=== PATIENT | male | born 1980 | race American Indian/Alaskan Native ===

== ENCOUNTER 2017-07-07 11:33 | Emergency (ER) | payer SELFPAY ==
[2017-07-07] MEDS ORDERED: ZOFRAN IV ONE (11:53)
[2017-07-07] MEDS ORDERED: DILAUDID IV ONE (11:53)
--- NOTE | 2017-07-07 12:32 | Emergency Department Report ---
ED Extremity Problem HPI - General Chief complaint: Extremity Injury, Lower Stated complaint: RT KNEE PAIN Time Seen by Provider: 07/07/17 11:47 Source: EMS Mode of arrival: Stretcher Limitations: No Limitations - History of Present Illness Initial comments: 37-year-old male with no past medical history present pain, right knee pain status post fall. Patient states he initially while down a set of stairs and heard a crack. While walking back up the stairs they gave way causing him to fall about 6 feet. Complains of 10/10 right knee pain somewhat improved with fentanyl prior to arrival. No other pain or injury reported. patient denies head injury or LOC. Severity scale (0 -10): 7 - Related Data Previous Rx's Medication Instructions Recorded Last Taken Type HYDROcodone/APAP 5-325 [[place] 1 each PO Q6HR PRN #15 tablet 07/07/17 Unknown Rx 5/325] Ibuprofen [Motrin] 800 mg PO Q8HR PRN #30 tablet 07/07/17 Unknown Rx Allergies Allergy/AdvReac Type Severity Reaction Status Date / Time garlic Allergy Swelling Verified 07/07/17 11:53 ED Review of Systems ROS: Stated complaint: RT KNEE PAIN Other details as noted in HPI Comment: All other systems reviewed and negative ED Past Medical Hx - Past Medical History Previous Medical History?: No - Surgical History Past Surgical History?: No - Social History Smoking Status: Current Every Day Smoker Substance Use Type: Alcohol - Medications Home Medications: Home Medications Medication Instructions Recorded Confirmed Last Taken Type HYDROcodone/APAP 5-325 [[place] 1 each PO Q6HR PRN #15 tablet 07/07/17 Unknown Rx 5/325] Ibuprofen [Motrin] 800 mg PO Q8HR PRN #30 tablet 07/07/17 Unknown Rx ED Physical Exam - General Limitations: No Limitations - Other Other exam information: General: No limitations, patient is alert in no acute distress Head exam: Atraumatic, normocephalic Eyes exam: Normal appearance, pupils equal reactive to light, extraocular movements intact ENT: Moist mucous membrane, normal oropharynx Neck exam: Normal inspection, full range of motion, no meningismus nontender Respiratory exam: Clear to auscultation bilateral, no wheezes, rales, crackles Cardiovascular: Normal rate and rhythm, normal heart sounds, ribs/chest wall nontender Abdomen: Soft, nondistended, and nontender, with normal bowel sounds, no rebound, or guarding Extremity: Right leg is splinted from the ankle. 2+ DP pulse. Tenderness to right medial knee joint without patella, patellar tendon, lateral joint, or quadriceps tendon tenderness. Positive pain with valgus stress Back: Normal Inspection, full range of motion, no tenderness Neurologic: Alert, oriented x3, cranial nerves intact, no motor or sensory deficit Psychiatric: normal affect, normal mood Skin: Warm, dry, intact ED Course Vital Signs 07/07/17 07/07/17 07/07/17 11:37 11:46 11:47 Temperature 98.3 F Pulse Rate 64 Respiratory 18 Rate Blood Pressure 136/78 136/78 134/78 O2 Sat by Pulse 98 97 Oximetry 07/07/17 07/07/17 07/07/17 12:00 12:15 12:30 Temperature Pulse Rate Respiratory Rate Blood Pressure 137/77 134/64 120/74 O2 Sat by Pulse 96 97 94 Oximetry ED Medical Decision Making - Medical Decision Making X-ray does not reveal any fracture patient has tenderness over the medial meniscus of the right knee. Patient place a knee immobilizer with crutches and orthopedic follow-up encouraged - Differential Diagnosis fracture, contusion, sprain, dislocation Critical Care Time: No Critical care attestation.: If time is entered above; I have spent that time in minutes in the direct care of this critically ill patient, excluding procedure time. ED Disposition Clinical Impression: Right medial knee pain, Fall Disposition: TO HOME OR SELFCARE Is pt being admited?: Yes Condition: Stable Instructions: Knee Sprain (ED), Knee Immobilizer (ED) Additional Instructions: Take medications as prescribed. Continue to wear knee immobilizer and crutches until cleared by the orthopedic surgeon. Follow up with orthopedic doctor provided or with the ortho doctor of your choice. Prescriptions: HYDROcodone/APAP 5-325 [[place] 5/325] 1 each PO Q6HR PRN #15 tablet PRN Reason: Pain Ibuprofen [Motrin] 800 mg PO Q8HR PRN #30 tablet PRN Reason: Pain Referrals: PURNIMA MARINA MD [Staff Physician] - 3-5 Days (Orthopedic doctor) [facility] [Provider Group] - 3-5 Days (Primary care clinic) Time of Disposition: 15:23
--- NOTE | 2017-07-07 12:39 | XRay Report ---
Right knee 2 views: History: Fall and pain. Findings: No fracture or dislocation. Normal articular surfaces. Suspected Mild degenerative changes. No joint effusion. Impression: No acute fracture.
--- NOTE | 2017-07-07 12:40 | XRay Report ---
Right tibia-fibula 2 views: History: Fall. Pain. Findings: No fracture, lytic lesion or periosteal reaction or soft tissue calcification. Impression: Sensory negative right tibia-fibula.
[2017-07-07 17:11] VITALS: BP 128/76
== END 2017-07-07 15:40 | disposition home or self-care (01) ==
LOC: ED 11:33
DX: S80.01XA Contusion of right knee, initial encounter (principal); Z91.018 Allergy to other foods; F17.200 Nicotine dependence, unspecified, uncomplicated; W10.8XXA Fall (on) (from) other stairs and steps, initial encounter; Y93.89 Activity, other specified; Y92.89 Other specified places as the place of occurrence of the external cause; Y99.8 Other external cause status
CPT/HCPCS: 29505; 73562; 73590; 96374; 96375; 99284; J1170; J2405

== ENCOUNTER 2018-07-26 21:08 | Emergency (ER) | payer SELFPAY ==
[2018-07-26] MEDS ORDERED: ZOFRAN ODT PO ONE (21:52)
[2018-07-26] MEDS ORDERED: XYLOCAINE 1% MPF 5 mL INFILTRATI ONE (21:52)
[2018-07-26] MEDS ORDERED: BOOSTRIX IM ONE (21:52)
[2018-07-26] MEDS ORDERED: NORCO 5/325 PO ONE (21:52)
--- NOTE | 2018-07-27 01:42 | Emergency Department Report ---
ED General Adult HPI - General Chief complaint: Skin/Abscess/Foreign Body Stated complaint: FB HAND Time Seen by Provider: 07/26/18 21:10 Source: patient Mode of arrival: Ambulatory Limitations: No Limitations - History of Present Illness Initial comments: Patient is a 38-year-old male with no past medical history but is not updated his tetanus vaccinations presents to the ED with minimal bleeding left thumb puncture wound on the palmar side after infiltration and said his left thumb and got stuck onto the left thumb about one hour ago when [place]. Patient denies numbness and tingling left hand or left thumb. MD Complaint: left thumb fish puncture wound; foreign body stuck -: Sudden, hour(s) (1) Location: upper extremity (left thumb) Radiation: non-radiation Severity scale (0 -10): 7 Quality: stabbing, aching, sharp, constant Consistency: constant Improves with: none Associated Symptoms: denies other symptoms. denies: confusion, chest pain, cough, diaphoresis, headaches, malaise, shortness of breath, syncope, other Treatments Prior to Arrival: none - Related Data Previous Rx's Medication Instructions Recorded Last Taken Type HYDROcodone/APAP 5-325 [[place] 1 each PO Q6HR PRN #15 tablet 07/07/17 Unknown Rx 5/325] Ibuprofen [Motrin] 800 mg PO Q8HR PRN #30 tablet 07/07/17 Unknown Rx Acetaminophen/Codeine [Tylenol 1 tab PO Q6H PRN #15 tab 07/27/18 Unknown Rx /Codeine # 3 tab] Ibuprofen [Motrin] 800 mg PO Q8HR PRN #20 tablet 07/27/18 Unknown Rx Sulfamethoxazole/Trimethoprim 1 each PO Q12H #20 tablet 07/27/18 Unknown Rx [Bactrim DS TAB] Allergies Allergy/AdvReac Type Severity Reaction Status Date / Time garlic Allergy Swelling Verified 07/07/17 11:53 ED Review of Systems ROS: Stated complaint: FB HAND Other details as noted in HPI Comment: All other systems reviewed and negative Constitutional: no symptoms reported, see HPI. denies: diaphoresis, fever, malaise Eyes: as per HPI. denies: eye discharge, vision change ENT: as per HPI. denies: ear pain, throat pain, dental pain, hearing loss Respiratory: no symptoms reported, see HPI. denies: cough, shortness of breath, SOB with exertion, stridor Cardiovascular: as per HPI. denies: chest pain, palpitations, dyspnea on exertion, edema, paroxysmal nocturnal dyspnea Endocrine: no symptoms reported, see HPI. denies: excessive sweating, flushing, intolerance to cold, increased hunger, increased thirst, increased urine, unexplained weight gain Gastrointestinal: as per HPI. denies: abdominal pain, nausea, vomiting, diarrhea, constipation, hematemesis Genitourinary: as per HPI. denies: frequency Musculoskeletal: as per HPI, other (left hand and thumb pain, puncture wound and foreign body stuck in left thumb). denies: joint swelling Skin: as per HPI, other (left thumb puncture wound due to foreign body ). denies: change in color, change in hair/nails Neurological: as per HPI. denies: headache, weakness, numbness, paresthesias, confusion, abnormal gait, vertigo Psychiatric: as per HPI Hematological/Lymphatic: as per HPI ED Past Medical Hx - Past Medical History Previous Medical History?: No - Surgical History Past Surgical History?: No - Social History Smoking Status: Never Smoker Substance Use Type: Alcohol, Marijuana - Medications Home Medications: Home Medications Medication Instructions Recorded Confirmed Last Taken Type HYDROcodone/APAP 5-325 [[place] 1 each PO Q6HR PRN #15 tablet 07/07/17 Unknown Rx 5/325] Ibuprofen [Motrin] 800 mg PO Q8HR PRN #30 tablet 07/07/17 Unknown Rx Acetaminophen/Codeine [Tylenol 1 tab PO Q6H PRN #15 tab 07/27/18 Unknown Rx /Codeine # 3 tab] Ibuprofen [Motrin] 800 mg PO Q8HR PRN #20 tablet 07/27/18 Unknown Rx Sulfamethoxazole/Trimethoprim 1 each PO Q12H #20 tablet 07/27/18 Unknown Rx [Bactrim DS TAB] ED Physical Exam - General Limitations: No Limitations General appearance: alert, in no apparent distress - Head Head exam: Present: atraumatic, normocephalic, normal inspection - Eye Eye exam: Present: normal appearance, PERRL, EOMI Pupils: Present: normal accommodation - ENT ENT exam: Present: normal exam, normal orophraynx, mucous membranes moist, TM's normal bilaterally, normal external ear exam - Neck Neck exam: Present: normal inspection, full ROM. Absent: tenderness, meningismus, lymphadenopathy, thyromegaly - Respiratory Respiratory exam: Present: normal lung sounds bilaterally. Absent: respiratory distress, wheezes, chest wall tenderness - Cardiovascular Cardiovascular Exam: Present: regular rate, normal rhythm, normal heart sounds. Absent: bradycardia, tachycardia, irregular rhythm, systolic murmur, diastolic murmur, rubs - GI/Abdominal GI/Abdominal exam: Present: soft, normal bowel sounds. Absent: distended, tenderness, guarding, rebound, hyperactive bowel sounds, hypoactive bowel sounds, organomegaly - Rectal Rectal exam: Present: deferred - Extremities Exam Extremities exam: Present: tenderness (left thumb tenderness due to a puncture wound with foreign body embedded into the tissue). Absent: full ROM, normal capillary refill, pedal edema, joint swelling, calf tenderness - Back Exam Back exam: Present: normal inspection, full ROM. Absent: tenderness, CVA tenderness (R), CVA tenderness (L), muscle spasm, paraspinal tenderness - Neurological Exam Neurological exam: Present: alert, oriented X3, CN II-XII intact, normal gait, reflexes normal. Absent: motor sensory deficit - Psychiatric Psychiatric exam: Present: normal affect - Skin Skin exam: Present: warm, dry, other (Puncture wound on left thumb with foreign body in the left thumb) ED Course Vital Signs 07/26/18 21:13 Temperature 98.1 F Pulse Rate 86 Respiratory 18 Rate Blood Pressure 137/91 O2 Sat by Pulse 100 Oximetry - Reevaluation(s) Reevaluation #1: 07/27/18 01:47 Patient is alert and oriented 3 and is not in distress. The patient is to use for pain and also treated with tetanus vaccination in the ED. The left thumb puncture wound was thoroughly cleaned and the foreign body removed after applying local anesthetic to the left thumb. The foreign body which is facial was successfully removed from the left thumb, normal nail damage was appreciated. Patient was discharged home on antibiotics and pain medications and advised to follow-up with his primary care physician in 7-10 days for reevaluation or return to the ED immediately if symptoms get worse. ED Medical Decision Making - Medical Decision Making Patient is alert and oriented 3 and is not in distress. The patient is to use for pain and also treated with tetanus vaccination in the ED. The left thumb puncture wound was thoroughly cleaned and the foreign body removed after applying local anesthetic to the left thumb. The foreign body which is facial was successfully removed from the left thumb, normal nail damage was appreciated. Patient was discharged home on antibiotics and pain medications and advised to follow-up with his primary care physician in 7-10 days for reevaluation or return to the ED immediately if symptoms get worse. - Differential Diagnosis puncture wound of left thumb; left thumb foreign body Critical care attestation.: If time is entered above; I have spent that time in minutes in the direct care of this critically ill patient, excluding procedure time. ED Disposition Clinical Impression: Puncture wound of left thumb with foreign body without damage to nail Qualifiers: Encounter type: initial encounter Qualified Code(s): S61.042A - Puncture wound with foreign body of left thumb without damage to nail, initial encounter Disposition: TO HOME OR SELFCARE Is pt being admited?: No Does the pt Need Aspirin: No Condition: Stable Instructions: Puncture Wound (ED), Soft Tissue Foreign Body (ED) Additional Instructions: Take medications with food, drink plenty of fluids and follow up with your primary care physician in 7-10 days for reevaluation. Return to the ED immediately if the symptoms get worse. Prescriptions: Sulfamethoxazole/Trimethoprim [Bactrim DS TAB] 1 each PO Q12H #20 tablet Ibuprofen [Motrin] 800 mg PO Q8HR PRN #20 tablet PRN Reason: Pain , Severe (7-10) Acetaminophen/Codeine [Tylenol /Codeine # 3 tab] 1 tab PO Q6H PRN #15 tab PRN Reason: Pain , Severe (7-10) Referrals: MIRTHA NEWBY MD [Primary Care Provider] - 3-5 Days Time of Disposition: 01:42 Print Language: MALTESE
[2018-07-27] MEDS ORDERED: BACTRIM DS PO ONE (01:43)
[2018-07-27] MEDS ORDERED: IBUPROFEN PO ONE (01:43)
[2018-07-27 01:56] VITALS: BP 132/93
== END 2018-07-27 02:01 | disposition home or self-care (01) ==
LOC: ED 21:08
DX: S61.042A Puncture wound with foreign body of left thumb without damage to nail, initial encounter (principal); F12.10 Cannabis abuse, uncomplicated; W45.8XXA Other foreign body or object entering through skin, initial encounter; Y93.89 Activity, other specified; Y92.89 Other specified places as the place of occurrence of the external cause; Y99.8 Other external cause status
CPT/HCPCS: 90471; 90715; Q0162